=== PATIENT | female | born 1985 | race Caucasian/White ===

== ENCOUNTER 2019-04-08 09:44 | Emergency (ER) | payer BC ==
[2019-04-08 10:28] VITALS: BP 131/74
--- NOTE | 2019-04-08 11:04 | UC ---
Lower Extremity/Ankle HPI - HPI Summary HPI Summary: 33-year-old woman comes in with a chief complaint of right foot pain. Yesterday she was playing soccer and she injured her right foot when the ball hit her foot. Pain is worse over the first metatarsal distal aspect. Pain is made worse by ambulation or flexion of the foot. Denies any ankle pain. No complaint of any weakness or numbness. - History of Current Complaint Chief Complaint: UCLowerExtremity Stated Complaint: RT FOOT INJURY Time Seen by Provider: 04/08/19 11:02 Hx Last Menstrual Period: 03/2019 Pain Intensity: 5 - Allergies/Home Medications Allergies/Adverse Reactions: Allergies Allergy/AdvReac Type Severity Reaction Status Date / Time No Known Allergies Allergy Verified 04/08/19 10:24 Home Medications: Home Medications Ibuprofen TAB* [Motrin TAB* 600 MG] 600 mg PO Q6H PRN 04/08/19 [History Confirmed 04/08/19] PMH/Surg Hx/FS Hx/Imm Hx Previously Healthy: Yes Other History Of: Negative For: HIV, Hepatitis B, Hepatitis C, Anticoagulant Therapy - Surgical History Surgical History: Yes Surgery Procedure, Year, and Place: right KNEE SURGERY 2004 - Family History Known Family History: Positive: None - Social History Alcohol Use: Rare Substance Use Type: None Smoking Status (MU): Never Smoked Tobacco Review of Systems All Other Systems Reviewed And Are Negative: Yes Constitutional: Positive: Negative Skin: Positive: Negative Eyes: Positive: Negative ENT: Positive: Negative Respiratory: Positive: Negative Cardiovascular: Positive: Negative Gastrointestinal: Positive: Negative Motor: Positive: Negative Neurovascular: Positive: Negative Musculoskeletal: Positive: Other: - SEE HPI Neurological: Positive: Negative Psychological: Positive: Negative Is Patient Immunocompromised?: No Physical Exam Triage Information Reviewed: Yes Appearance: Well-Appearing, Well-Nourished, Pain Distress - MILD WITH ROM AND EXAM OF RT FOOT Vital Signs: Initial Vital Signs Temp 98.4 F 04/08/19 10:23 Pulse 67 04/08/19 10:23 Resp 14 04/08/19 10:23 BP 131/74 04/08/19 10:23 Pulse Ox 100 04/08/19 10:23 Vital Signs Reviewed: Yes Eye Exam: Normal Eyes: Positive: Conjunctiva Clear Neck: Positive: Supple Respiratory: Positive: No respiratory distress Musculoskeletal: Positive: Strength Intact, Other: - Right foot is tender to palpation over the first metatarsal primarily in the distal aspect. Most tender on the plantar aspect. Ankle is nontender full range of motion Achilles tendon is tender with full range of motion full-strength. Normal dorsalis pedis pulse normal capillary refill no sensation deficit. Neurological: Positive: Alert Psychological: Positive: Age Appropriate Behavior Skin Exam: Normal Lower Extremity Course/Dx - Course Course Of Treatment: Automotive Power Electronics Engineer: Joseph Carrera F, ([id number]) Wood Machine Carver: DEIDRA ( VISHNUANCE) Report Date: 04/08/2019 10:35:00 Report Status: Final ====== Start of Report Content Patient Name: RAFAEL EAST Medical Record#: [id number] Ordering Physician: Coco Vigil STAFF PHARMACIST Acct.#: [id number] : 1985 Age: 33 Sex: F Location: [facility] Exam Date: 04/08 1035 ADM Status: REG ER Order Information: FOOT RIGHT 3+ VWS Accession Number: [id number] CPT: 45375 INDICATION: Right foot injury. TECHNIQUE: 3 views of the right foot were obtained. FINDINGS: The bones are in normal alignment. No fracture is seen. Joint spaces appear maintained. IMPRESSION: NO EVIDENCE FOR FRACTURE. ___ <Electronically signed by Joseph Carrera MD in OV> 04/08/19 1051 Dictated By: Joseph Carrera MD Dictated Date/Time: 04/08/19 1050 Transcribed Date/Time: 04/08/19 105 Copy to: CC:[facility]; Inez Russ MD; Coco Ramirez NP Imaging - [facility] Imaging - [facility] Imaging - [facility] [id number] [place] [id number] ph ([phone]) ph [phone]) ph ([phone]) End of Report Content I discussed cussed the x-rays with the patient no fracture seen. Patient was placed a cam boot by nursing here in clinic patient Norvasc intact placement of a cam boot. Patient declined crutches. Plan is ice anti-inflammatories ambulation as tolerated and follow-up with sports medicine or orthopedics if not completely improved. - Differential Dx/Diagnosis Provider Diagnosis: Right foot sprain Discharge ED - Sign-Out/Discharge Documenting (check all that apply): Patient Departure All imaging exams completed and their final reports reviewed: Yes - Discharge Plan Condition: Stable Disposition: HOME Patient Education Materials: Foot Sprain (ED) Referrals: Inez Russ MD [Primary Care Provider] - [facility] [Provider Group] Otis Catherine MD [Medical Doctor] - Additional Instructions: FOLLOW UP WITH ORTHOPEDICS OR SPORTS MEDICINE IF NOT COMPLETELY IMPROVED. GET REEVALUATED SOONER IF NOT IMPROVING OR YOUR CONDITION WORSENS OR ANY QUESTIONS OR CONCERNS - Billing Disposition and Condition Condition: STABLE Disposition: Home
== END 2019-04-08 11:23 | disposition home or self-care (01) ==
LOC: UCCORT 09:44
DX: S93.601A Unspecified sprain of right foot, initial encounter (principal); W21.02XA Struck by soccer ball, initial encounter; Y93.66 Activity, soccer; Y92.9 Unspecified place or not applicable
CPT/HCPCS: 99212; G0463